=== PATIENT | male | born 1965 | race Caucasian/White ===

== ENCOUNTER 2020-04-19 16:01 | Outpatient (REF) | payer BC, SELFPAY ==
[2020-04-19 19:12] LABS: ALT 36 U/L (16-63); AST 18 U/L (15-37); Alkaline Phosphatase 77 U/L (46-116); Anion Gap 7.3 mmol/L (3-11); BUN 25 mg/dL (7-18); Bilirubin, Total 0.5 mg/dL (0.2-1.0); CO2 29.7 mmol/L (21.0-32.0); CREATININE 1.29 mg/dL (0.70-1.30); Calculated LDL 155 mg/dL (<100); Chloride 105 mmol/L (98-107); Cholesterol 225 mg/dL (<200); Estimated GFR 57.83 (mL/min/1.73m2); Glucose 99 mg/dL (74-106); HDL Cholesterol 42 mg/dL (40-60); Potassium 4.3 mmol/L (3.5-5.1); Sodium 142 mmol/L (136-145); Total Protein 7.3 g/dL (6.4-8.2); Triglyceride 142 mg/dL (<150)
== END 2020-04-19 16:21 ==
LOC: NCHCN 16:01
PROVIDERS: PCP Physician Assistant; Visit Provider Nurse Practitioner Family
DX: E78.5 Hyperlipidemia, unspecified (principal); R03.0 Elevated blood-pressure reading, without diagnosis of hypertension
CPT/HCPCS: 80053; 80061

== ENCOUNTER 2021-11-27 16:46 | Outpatient (REF) | payer BC, SELFPAY ==
[2021-11-27 19:13] LABS: ALT 29 U/L (16-63); AST 23 U/L (15-37); Albumin 4.1 g/dL (3.4-5.0); Alkaline Phosphatase 76 U/L (46-116); Anion Gap 7.6 mmol/L (3-11); BUN 21 mg/dL (7-18); Bilirubin, Total 0.6 mg/dL (0.2-1.0); CO2 28.4 mmol/L (21.0-32.0); Calculated LDL 139 mg/dL (<100); Chloride 106 mmol/L (98-107); Cholesterol 197 mg/dL (<200); Glucose 92 mg/dL (74-106); HDL Cholesterol 44 mg/dL (40-60); Potassium 4.1 mmol/L (3.5-5.1); Sodium 142 mmol/L (136-145); Total Protein 7.7 g/dL (6.4-8.2); Triglyceride 74 mg/dL (<150)
== END 2021-11-27 16:47 | disposition home or self-care (01) ==
LOC: NCHCN 16:46
PROVIDERS: PCP Physician Assistant; Visit Provider Nurse Practitioner Family
DX: E78.5 Hyperlipidemia, unspecified (principal); R03.0 Elevated blood-pressure reading, without diagnosis of hypertension
CPT/HCPCS: 80053; 80061

== ENCOUNTER 2024-03-05 12:56 | Outpatient (REF) | payer BC, SELFPAY ==
[2024-03-05 19:25] LABS: Calculated LDL 112 mg/dL (<100); Cholesterol 187 mg/dL (<200); HDL Cholesterol 64 mg/dL (40-60); Triglyceride 57 mg/dL (<150)
[2024-03-05 19:26] LABS: ALT 34 U/L (16-63); AST 25 U/L (15-37); Albumin 3.9 g/dL (3.4-5.0); Alkaline Phosphatase 89 U/L (46-116); Anion Gap 7.1 mmol/L (3-11); BUN 22 mg/dL (7-18); Bilirubin, Total 0.56 mg/dL (0.2-1.0); CO2 29.9 mmol/L (21.0-32.0); CREATININE 1.2 mg/dL (0.70-1.30); Calcium 9.3 mg/dL (8.5-10.1); Chloride 107 mmol/L (98-107); Estimated GFR 69.66 (mL/min/1.73m2); Glucose 98 mg/dL (74-106); Potassium 4.7 mmol/L (3.5-5.1); Sodium 144 mmol/L (136-145); Total Protein 7.7 g/dL (6.4-8.2)
== END 2024-03-05 12:57 | disposition home or self-care (01) ==
LOC: NCHCN 12:56
PROVIDERS: PCP Nurse Practitioner Family; Visit Provider Nurse Practitioner Family
DX: I10 Essential (primary) hypertension (principal); E78.5 Hyperlipidemia, unspecified
CPT/HCPCS: 80053; 80061

== ENCOUNTER 2025-02-17 19:51 | Outpatient (REF) | payer BC, SELFPAY ==
[2025-02-17 22:00] LABS: ALT 27 U/L (16-63); AST 20 U/L (15-37); Albumin 4.2 g/dL (3.4-5.0); Alkaline Phosphatase 82 U/L (46-116); Anion Gap 6.8 mmol/L (3-11); BUN 21 mg/dL (7-18); Bilirubin, Total 1.0 mg/dL (0.2-1.0); CO2 29.2 mmol/L (21.0-32.0); Calcium 9.1 mg/dL (8.5-10.1); Calculated LDL 99 mg/dL (<100); Chloride 105 mmol/L (98-107); Cholesterol 172 mg/dL (<200); Estimated GFR 76.85 (mL/min/1.73m2); Glucose 85 mg/dL (74-106); HDL Cholesterol 62 mg/dL (>or=40); Potassium 4.1 mmol/L (3.5-5.1); Sodium 141 mmol/L (136-145); Total Protein 7.6 g/dL (6.4-8.2); Triglyceride 57 mg/dL (<150)
== END 2025-02-17 19:52 | disposition home or self-care (01) ==
LOC: NCHCN 19:51
PROVIDERS: PCP Nurse Practitioner Family; Visit Provider Nurse Practitioner Family
DX: I10 Essential (primary) hypertension (principal); E78.5 Hyperlipidemia, unspecified
CPT/HCPCS: 80053; 80061